=== PATIENT | female | born 1950 ===

== ENCOUNTER → 2021-07-14 10:55 | Outpatient (CLI) | payer MEDICARE, OTHER, SELFPAY ==
[2021-07-14 19:53] LABS: Vitamin D 25 Hydroxy (D3) 52.2 ng/mL (30.0-100.0)
[2021-07-14 20:05] LABS: TSH w/ Reflex to FT4 0.74 uIU/mL (0.47-4.68)
[2021-07-14 20:12] LABS: Vitamin B12 635 pg/mL (239-931)
== END ==
PROVIDERS: PCP Family Medicine; Visit Provider Family Medicine
DX: E55.9 Vitamin D deficiency, unspecified (principal); I10 Essential (primary) hypertension; R42 Dizziness and giddiness
CPT/HCPCS: 82306; 82607; 84443

== ENCOUNTER → 2021-08-17 08:05 | Outpatient (CLI) | payer MEDICARE, OTHER, SELFPAY ==
[2021-08-17 18:59] LABS: Alanine Aminotransferase 21 IU/L (<35); Albumin 4.5 g/dL (3.5-5.0); Albumin Globulin Ratio 1.5 (1.0-2.8); Alkaline Phosphatase 69 U/L (38-126); Aspartate Aminotransferase 25 IU/L (14-36); BUN Creatinine Ratio 22.9 (6-22); Bilirubin Total 0.6 mg/dL (0.2-1.3); Blood Urea Nitrogen 16 mg/dL (7-17); Carbon Dioxide 29 mmol/L (22-32); Chloride 105 mmol/L (98-107); Cholesterol 253 mg/dL (140-199); Estimated Glomerular Filt Rate > 60.0 mL/min (>60); Glucose 98 mg/dL (80-110); HDL Cholesterol 64 mg/dL (40-60); HEMOLYSIS < 15 (0-50); LDL Cholesterol Calculated 168 mg/dL (<100); Potassium 4.2 mmol/L (3.4-5.1); Sodium 143 mmol/L (137-145); Total Protein 7.5 g/dL (6.3-8.2); Triglycerides 106 mg/dL (35-150)
[2021-08-17 19:17] LABS: Add Manual Diff / Slide Review NO; Basophils Absolute Auto 0 /uL (0-100); Basophils Percent Auto 0.7 % (0-2); Eosinophils Absolute Auto 200 /uL (0-450); Eosinophils Percent Auto 3.5 % (2-4); Hematocrit 42.3 % (36-46); Hemoglobin 14.2 g/dL (12.0-16.0); Lymphocytes Absolute Auto 1100 /uL (1100-4500); Lymphocytes Percent Auto 19.8 % (25-40); Mean Corpuscular HGB Conc 33.6 % (30-36); Mean Corpuscular Hemoglobin 30.8 PG (26-34); Mean Corpuscular Volume 91.7 fL (80-100); Monocytes Absolute Auto 400 /uL (0-900); Monocytes Percent Auto 7.2 % (3-14); Neutrophils Absolute Auto 3900 /uL (1500-7000); Neutrophils Percent Auto 68.8 % (50-75); Platelet Count 273 X10^3/uL (150-400); Red Blood Cell Count 4.61 X10^6/uL (4.0-5.2); Red Cell Distribution Width 13.5 % (11.6-14.8); White Blood Cell Count 5.7 X10^3/uL (4.5-11.0)
== END ==
PROVIDERS: PCP Physician Assistant; Visit Provider Physician Assistant
DX: R42 Dizziness and giddiness (principal); I10 Essential (primary) hypertension; E55.9 Vitamin D deficiency, unspecified
CPT/HCPCS: 80053; 80061; 85025

== ENCOUNTER → 2023-09-26 08:59 | Outpatient (CLI) | payer MEDICARE, OTHER, SELFPAY ==
[2023-09-26 19:43] LABS: Alanine Aminotransferase 23 IU/L (<35); Albumin 4.2 g/dL (3.5-5.0); Albumin Globulin Ratio 1.4 (1.0-2.8); Alkaline Phosphatase 58 U/L (38-126); Aspartate Aminotransferase 25 IU/L (14-36); BUN Creatinine Ratio 26.5 (6-22); Bilirubin Total 0.6 mg/dL (0.2-1.3); Blood Urea Nitrogen 18 mg/dL (7-17); Calcium 9.5 mg/dL (8.4-10.2); Carbon Dioxide 27 mmol/L (22-32); Chloride 105 mmol/L (98-107); Cholesterol 247 mg/dL (140-199); Estimated Glomerular Filt Rate > 60 mL/min (>60); Glucose 96 mg/dL (80-110); HDL Cholesterol 68 mg/dL (40-60); HEMOLYSIS < 15 (0-50); LDL Cholesterol Calculated 161 mg/dL (<100); Potassium 4.5 mmol/L (3.4-5.1); Sodium 140 mmol/L (137-145); Total Protein 7.2 g/dL (6.3-8.2); Triglycerides 89 mg/dL (35-150)
== END ==
PROVIDERS: PCP Family Medicine; Visit Provider Family Medicine
DX: Z13.6 Encounter for screening for cardiovascular disorders (principal); Z13.1 Encounter for screening for diabetes mellitus; Z12.39 Encounter for other screening for malignant neoplasm of breast; Z23 Encounter for immunization; Z12.9 Encounter for screening for malignant neoplasm, site unspecified; Z12.11 Encounter for screening for malignant neoplasm of colon
CPT/HCPCS: 80053; 80061

== ENCOUNTER → 2024-01-02 11:14 | Outpatient (CLI) | payer MEDICARE, OTHER, SELFPAY ==
--- NOTE | 2024-01-02 11:16 | DI.MG.S_ITS ---
BILATERAL DIGITAL SCREENING MAMMOGRAM 3D/2D WITH CAD: 01/02/2024 CLINICAL: Routine screening. Family history of breast cancer. No prior exams were available for comparison. There are scattered areas of fibroglandular density in both breasts (category b / 25%-50% glandular tissue). Current study was also evaluated with a Computer Aided Detection (CAD) system. There is a focal asymmetry in the right breast at 12 o'clock middle depth. No other significant masses, calcifications, or other findings are seen in either breast. IMPRESSION: INCOMPLETE: NEEDS ADDITIONAL IMAGING EVALUATION The focal asymmetry in the right breast is indeterminate. Additional views with possible ultrasound are recommended. Based on the Tyrer Cuzick model (a risk assessment model) the patient's lifetime risk is 7.0% and her 10 year risk is 5.2%. According to the ACR, ACS, and NCCN guidelines, an annual breast MRI exam along with mammogram is recommended if the patient's lifetime risk is 20% or greater. This exam was interpreted at Station ID: [id number]. NOTE: For mammograms, a report in lay terms will be sent to the patient. Approximately 15% of breast malignancies will not be visualized mammographically. In the management of a palpable breast mass, a negative mammogram must not discourage biopsy of a clinically suspicious lesion. Electronically Signed By: Kirill cook/lashonda:01/03/2024 11:50:56 letter sent: Additional Imaging Needed ACR BI-RADS Category 0: Incomplete 3340F
== END ==
PROVIDERS: PCP Family Medicine; Referring Provider Family Medicine; Visit Provider Family Medicine
DX: Z12.31 Encounter for screening mammogram for malignant neoplasm of breast (principal); Z80.3 Family history of malignant neoplasm of breast; R92.323 Mammographic fibroglandular density, bilateral breasts
CPT/HCPCS: 77063; 77067

== ENCOUNTER → 2024-03-04 09:29 | Outpatient (CLI) | payer MEDICARE, OTHER, SELFPAY ==
--- NOTE | 2024-03-04 09:30 | DI.MG.S_ITS ---
UNILATERAL RIGHT DIGITAL DIAGNOSTIC MAMMOGRAM 3D/2D WITH ADDITIONAL VIEWS: 03/04/2024 CLINICAL: Additional evaluation requested from prior study. Comparison is made to exam dated: 01/02/2024 mammogram - [facility]. There are scattered areas of fibroglandular density in the right breast (category b / 25%-50% glandular tissue). With focal spot compression, and additional views, the abnormality seen in the right breast at 12 o'clock on screening mammography resolves. This is consistent with overlapping fibroglandular tissue. No significant masses, calcifications, or other findings are seen in the breast. IMPRESSION: INCOMPLETE: NEEDS ADDITIONAL IMAGING EVALUATION Resolution of screening mammography abnormality with additional views. Ultrasound evaluation to confirm resolution is recommended and was performed immediately following this exam. Based on the Tyrer Cuzick model (a risk assessment model) the patient's lifetime risk is 7.0% and her 10 year risk is 5.2%. According to the ACR, ACS, and NCCN guidelines, an annual breast MRI exam along with mammogram is recommended if the patient's lifetime risk is 20% or greater. This exam was interpreted at Station ID: [id number]. NOTE: For mammograms, a report in lay terms will be sent to the patient. Approximately 15% of breast malignancies will not be visualized mammographically. In the management of a palpable breast mass, a negative mammogram must not discourage biopsy of a clinically suspicious lesion. Electronically Signed By: Michelle josé/:03/04/2024 10:13:00 ACR BI-RADS Category 0: Incomplete 3340F
--- NOTE | 2024-03-04 09:31 | DI.US.S_ITS ---
LIMITED ULTRASOUND OF RIGHT BREAST AND AXILLA: 03/04/2024 CLINICAL: Patient returns today to evaluate a focal asymmetry in the right breast. Comparison is made to exams dated: 03/04/2024 mammogram and 01/02/2024 mammogram - [facility]. Color flow and real-time ultrasound of the right breast 10-12 o'clock, and axilla regions were performed. Grigsby scale images of the real-time examination were reviewed. No sonographic finding to correspond to the patient's resolved screening mammographic abnormality. There is an incidental, peripherally calcified, 3mm oil cyst documented. This correlates with mammography. No significant abnormalities were seen sonographically in the right axilla. IMPRESSION: PROBABLY BENIGN There are no abnormalities seen in the right breast to correspond with the mammography finding at 10 to 12 o'clock in the middle depth which likely represent normal fibroglandular tissue. A follow-up right mammogram and a possible ultrasound in 6 months is recommended to demonstrate stability. Findings and recommendations were conveyed to the patient at time of exam. This exam was interpreted at Station ID: [id number]. Electronically Signed By: Michelle josé/:03/04/2024 11:15:32 letter sent: Followup Recommended Ultrasound BI-RADS: 3 Probably benign
== END ==
PROVIDERS: PCP Family Medicine; Referring Provider Family Medicine; Visit Provider Family Medicine
DX: R92.8 Other abnormal and inconclusive findings on diagnostic imaging of breast (principal); R92.321 Mammographic fibroglandular density, right breast
CPT/HCPCS: 76642; 77065; G0279

== ENCOUNTER → 2024-03-06 09:58 | Outpatient (CLI) | payer MEDICARE, OTHER, SELFPAY ==
--- NOTE | 2024-03-06 10:00 | DI.US.S_ITS ---
PROCEDURE: US PELVIC COMPLETE INDICATIONS: Postmenopausal Bleeding,Retention of urine TECHNIQUE: Real-time scanning was performed of the pelvic organs, with image documentation. Additional endovaginal scanning was necessary due to incomplete visualization of the adnexal and endometrial structures by transabdominal scanning. COMPARISON: None. FINDINGS: Uterus: Uterus measures overall 6.2 x 6.4 x 3.2 cm. Uterus appears to be folded anteriorly upon itself such that the fundus is at the base of the bladder. Endometrial thickening measure 1 mm Ovaries: Right ovary measures 2.6 x 1.2 x 1.0 cm. Left ovary not visualized. Other: No pathologic free abdominal or pelvic fluid. IMPRESSION: Abnormal anterior folding of the uterus. Consider follow-up MRI pelvis and or [employer] consult Approved by: Fred Remy M.D. on 03/06/2024 at 13:32
--- NOTE | 2024-03-06 10:00 | DI.US.S_ITS ---
PROCEDURE: US RENAL COMPLETE INDICATIONS: Postmenopausal Bleeding, Retention of urine TECHNIQUE: Real-time scanning was performed of the kidneys and bladder, with image documentation. COMPARISON: [facility], , US PELVIC COMPLETE, 03/06/2024, 10:18. FINDINGS: Kidneys: Kidneys are normal in size. Right kidney measures 12.2 cm long; left kidney measures 11 cm long. Right renal cortical thickness is 1.1 cm; left renal cortical thickness is 1.2 cm. Renal cortical echotexture is normal. No nephrolithiasis. No suspicious solid mass lesions. Moderate to prominent right-sided hydronephrosis is seen. The proximal ureter measures 3.5 cm AP. Bladder: Pre-void bladder volume is 228 mL. The postvoid bladder volume is not measured. Pre-void images demonstrate no intraluminal masses or stones. On pre-void images, neither of the ureteral jets are noted with color Doppler interrogation. (Of note, ureteral jets may not be detectable in up to 25% of cases due to insufficient differences in specific gravity between ureteral and bladder urine). Miscellaneous: No free pelvic fluid. Note is made that the uterus is completely prolapse after the patient voided. IMPRESSION: Moderate to severe right-sided hydronephrosis and hydroureter. A postvoid bladder volume measurement cannot be obtained, as the patient uterus is completely prolapsed after the patient voided. Dictated by: Kalen Robin M.D. on 03/06/2024 at 11:08 Approved by: Kalen Robin M.D. on 03/06/2024 at 11:12
== END ==
PROVIDERS: PCP Family Medicine; Referring Provider Obstetrics & Gynecology Female Pelvic Medicine and Reconstructive Surgery; Visit Provider Obstetrics & Gynecology Female Pelvic Medicine and Reconstructive Surgery
DX: N13.30 Unspecified hydronephrosis (principal); N95.0 Postmenopausal bleeding; R33.9 Retention of urine, unspecified; N85.9 Noninflammatory disorder of uterus, unspecified
CPT/HCPCS: 76770; 76856

== ENCOUNTER → 2024-04-07 09:42 | Outpatient (CLI) | payer MEDICARE, OTHER, SELFPAY | PROVIDERS: PCP Family Medicine; Visit Provider Family Medicine | DX: Z01.818 Encounter for other preprocedural examination (principal); R39.89 Other symptoms and signs involving the genitourinary system; I10 Essential (primary) hypertension | CPT/HCPCS: 87086 ==

== ENCOUNTER → 2024-04-08 14:03 | Outpatient (CLI) | payer MEDICARE, OTHER, SELFPAY ==
[2024-04-08 20:33] LABS: BUN Creatinine Ratio 26.8 (6-22); Blood Urea Nitrogen 19 mg/dL (7-17); Calcium 10.2 mg/dL (8.4-10.2); Carbon Dioxide 23 mmol/L (22-32); Chloride 108 mmol/L (98-107); Estimated Glomerular Filt Rate > 60 mL/min (>60); Glucose 97 mg/dL (80-110); HEMOLYSIS < 15 (0-50); Sodium 138 mmol/L (137-145)
[2024-04-08 20:45] LABS: Add Manual Diff / Slide Review NO; Basophils Absolute Auto 100 /uL (0-100); Basophils Percent Auto 0.9 % (0-2); Eosinophils Absolute Auto 200 /uL (0-450); Eosinophils Percent Auto 3.1 % (2-4); Hematocrit 41.1 % (36-46); Hemoglobin 13.7 g/dL (12.0-16.0); Lymphocytes Absolute Auto 1400 /uL (1100-4500); Lymphocytes Percent Auto 21.4 % (25-40); Mean Corpuscular HGB Conc 33.3 % (30-36); Mean Corpuscular Hemoglobin 31.3 PG (26-34); Monocytes Absolute Auto 500 /uL (0-900); Monocytes Percent Auto 6.8 % (3-14); Neutrophils Absolute Auto 4500 /uL (1500-7000); Neutrophils Percent Auto 67.8 % (50-75); Platelet Count 284 X10^3/uL (150-400); Red Blood Cell Count 4.37 X10^6/uL (4.0-5.2); Red Cell Distribution Width 13.2 % (11.6-14.8); White Blood Cell Count 6.7 X10^3/uL (4.5-11.0)
== END ==
PROVIDERS: PCP Family Medicine; Referring Provider Family Medicine; Visit Provider Family Medicine
DX: Z01.818 Encounter for other preprocedural examination (principal); I10 Essential (primary) hypertension
CPT/HCPCS: 80048; 85025

== ENCOUNTER → 2024-05-13 08:26 | Outpatient (CLI) | payer MEDICARE, OTHER, SELFPAY | PROVIDERS: PCP Family Medicine; Visit Provider Physician Assistant Medical | DX: R30.0 Dysuria (principal) | CPT/HCPCS: 87086 ==

== ENCOUNTER 2024-05-13 14:41 | Observation (INO) | payer MEDICARE, OTHER, SELFPAY ==
[2024-05-13] VITALS (22 sets, daily range): BP systolic 117–170; BP diastolic 53–72; PULSE 61–95; RESP 18–22; TEMP 36.2–36.8; O2SAT 92–99; BMI 31.1
[2024-05-13 15:34] LABS: Add Manual Diff / Slide Review NO; Basophils Absolute Auto 0 /uL (0-100); Basophils Percent Auto 0.2 % (0-2); Eosinophils Absolute Auto 0 /uL (0-450); Eosinophils Percent Auto 0.2 % (2-4); Hematocrit 37.1 % (36-46); Hemoglobin 12.5 g/dL (12.0-16.0); Lymphocytes Absolute Auto 600 /uL (1100-4500); Lymphocytes Percent Auto 4.4 % (25-40); Mean Corpuscular HGB Conc 33.6 % (30-36); Mean Corpuscular Hemoglobin 31.2 PG (26-34); Mean Corpuscular Volume 92.6 fL (80-100); Monocytes Absolute Auto 1200 /uL (0-900); Neutrophils Absolute Auto 11800 /uL (1500-7000); Neutrophils Percent Auto 86.2 % (50-75); Platelet Count 380 X10^3/uL (150-400); Red Blood Cell Count 4.01 X10^6/uL (4.0-5.2); Red Cell Distribution Width 12.9 % (11.6-14.8); White Blood Cell Count 13.7 X10^3/uL (4.5-11.0)
[2024-05-13] MEDS: HYDROMORPHONE 0.5 MG INJ IV (15:45)
[2024-05-13] MEDS: LIDOCAINE 2% (GLYDO) 6 ML GEL TOP (15:45)
[2024-05-13] MEDS: ONDANSETRON 4 MG/2 ML INJ IV (15:45)
[2024-05-13 15:46] LABS: Lactate (Lactic Acid) 0.9 mmol/L (0.7-2.1)
[2024-05-13] MEDS: SODIUM CHLORIDE 0.9% 1,000 ML 1000 ML IV (15:46)
[2024-05-13 15:47] LABS: Alanine Aminotransferase 14 IU/L (<35); Albumin 3.9 g/dL (3.5-5.0); Albumin Globulin Ratio 1.3 (1.0-2.8); Alkaline Phosphatase 86 U/L (38-126); Aspartate Aminotransferase 20 IU/L (14-36); Bilirubin Total 0.8 mg/dL (0.2-1.3); Blood Urea Nitrogen 41 mg/dL (7-17); Calcium 9.1 mg/dL (8.4-10.2); Carbon Dioxide 15 mmol/L (22-32); Chloride 99 mmol/L (98-107); Estimated Glomerular Filt Rate 30 mL/min (>60); Globulin 3.1 g/dL (1.7-4.1); Glucose 106 mg/dL (80-110); HEMOLYSIS < 15 (0-50); Sodium 126 mmol/L (137-145)
[2024-05-13 16:13] LABS: Appearance Urine UA CLEAR; Bilirubin Urine UA NEGATIVE (NEGATIVE); Color Urine UA YELLOW; Glucose Urine UA NEGATIVE (Negative); Ketones Urine UA 1+ (NEGATIVE); Leukocyte Esterase Urine UA TRACE (NEGATIVE); Nitrite Urine UA NEGATIVE (Negative); Occult Blood Urine UA TRACE-INTACT (Negative); Protein Urine UA NEGATIVE (Negative); Specific Gravity Urine UA <=1.005 (1.000-1.035); Urobilinogen Urine UA 0.2 E.U./dL (0.2)
--- NOTE | 2024-05-13 16:15 | ED_ITS ---
HPI - General Adult <Charmaine Hughes MD - Last Filed: 06/04/24 03:53> General Chief complaint: Abdominal Pain Stated complaint: infection, post op problems, sent by pcp Time Seen by Provider: 05/13/24 14:50 Source: patient and family Mode of arrival: Wheelchair History of Present Illness HPI narrative: 74-year-old woman with recent uterine descensus repair with colpocleisis and cystoscopy for a bladder tumor on May 05 at [facility] comes in complaining of severe abdominal pain. She has been having increasing difficulty voiding over the last 48 hours. Increasing weakness. Her surgeon asked her to come in for further evaluation. She has not describing fever. She is having some minor postoperative vaginal discharge but does not feel that it is worsening. She has had some nausea has not been able to eat well for the past number of days. Occasional vomiting. She states she had a normal bowel movement this morning that did not cause severe pain. Related Data Home Medications Medication Instructions Recorded Confirmed No Known Home Medications 09/13/23 05/13/24 Allergies Allergy/AdvReac Type Severity Reaction Status Date / Time procaine [From Novocain] AdvReac Intermediate Verified 05/13/24 15:38 Review of Systems <Charmaine Hughes MD - Last Filed: 06/04/24 03:53> Review of Systems Narrative: Pertinent positive and negative findings as per HPI Patient History <Charmaine Hughes MD - Last Filed: 06/04/24 03:53> Medical History Uterine prolapse Social History household members: children Smoking Status: Former smoker alcohol intake: former additional social history: exercise: 5,000 steps per day. 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 FHX: no colon cancer half sister with breast cancer 08/2023 Smoking Status: Former smoker Substance Use Type: does not use Exam <Charmaine Hughes MD - Last Filed: 06/04/24 03:53> Initial Vital Signs Initial Vital Signs: Vital Signs Pulse Rate 87 05/13/24 14:49 Pulse Oximetry 99 05/13/24 14:49 General: Healthy appearing, fatigued, pale, complaining of abdominal pain but able to cooperate completely with exam and history HEENT: Dry mucous membranes, normal sclera with reactive pupils, Respiratory: Lungs are clear to auscultation, no wheezing no rales no rhonchi. Full and symmetrical air movement Cardiac: Regular rate and rhythm no murmurs no bruits Abdomen: Slightly distended, diffusely tender with rebound noted. Bilateral flank pain. Perineum: Some minor postoperative vaginal discharge no significant erythema or obvious infection Skin: Pale but otherwise Warm and dry, no rashes Neurologic: Weak but Grossly neurologically intact with no obvious asymmetries or abnormalities Extremities: No trauma, no lower extremity edema Psych: Cooperative, appropriate insight and affect <Mckay Shah DO - Last Filed: 05/13/24 20:25> Initial Vital Signs Initial Vital Signs: Vital Signs Pulse Rate 87 05/13/24 14:49 Pulse Oximetry 99 05/13/24 14:49 Course <Charmaine Hughes MD - Last Filed: 06/04/24 03:53> Orders Ordered: Discontinued Medications Acetaminophen (Acetaminophen 325 Mg Tablet) 650 mg PO Q6H PRN PRN Reason: Fever/Mild Pain (1-3) Hydrocodone Bitart/Acetaminophen (Hydrocodone/Acet 5/325 Tablet) 1 tab PO Q4H PRN PRN Reason: Pain, Moderate (4-6) Hydromorphone HCl (Hydromorphone 0.5 Mg Inj) 0.5 mg IV Q15MIN PRN PRN Reason: Pain, Last Admin: 05/13/24 15:45 Dose: 0.5 mg Documented By: SELIN Sodium Chloride (Normal Saline 0.9%) 1,000 mls @ 1,000 mls/hr IV BOLUS ONE Stop: 05/13/24 16:15 Last Infusion: 05/13/24 17:24 Dose: Infused Documented By: Admin: 05/13/24 15:46 Dose: 1,000 mls/hr Documented By: SELIN Ceftriaxone Sodium 2,000 mg/ (Sodium Chloride) 100 mls @ 200 mls/hr IV NOW ONE Stop: 05/13/24 16:19 Last Infusion: 05/13/24 17:24 Dose: Infused Documented By: Admin: 05/13/24 16:44 Dose: 200 mls/hr Documented By: OFELIA Sodium Chloride (Normal Saline 0.9%) 1,000 mls @ 100 mls/hr IV CONT CHANELLE Last Admin: 05/14/24 07:43 Dose: 100 mls/hr Documented By: Infusion: 05/14/24 07:34 Dose: Infused Documented By: Admin: 05/13/24 21:34 Dose: 100 mls/hr Documented By: ANUSHA Lidocaine HCl (Lidocaine 2% (Glydo) 6 Ml Gel) 6 ml TOP NOW ONE Stop: 05/13/24 15:17 Last Admin: 05/13/24 15:45 Dose: 6 ml Documented By: SELIN Naloxone HCl (Naloxone 0.4 Mg/Ml Vial) 0.2 mg IV Q2MIN PRN PRN Reason: Opiate Reversal Ondansetron HCl (Ondansetron 4 Mg/2 Ml Inj) 4 mg IV NOW ONE Stop: 05/13/24 15:17 Last Admin: 05/13/24 15:45 Dose: 4 mg Documented By: SELIN Ondansetron HCl (Ondansetron 4 Mg/2 Ml Inj) 4 mg IV Q8HR PRN PRN Reason: Nausea And Vomiting Vital Signs Vital signs: Vital Signs - 8 hr 05/13/24 14:49 05/13/24 14:50 05/13/24 14:50 Temperature Pulse Rate 87 87 Respiratory Rate Blood Pressure 170/72 H Pulse Oximetry 99 98 Oxygen Delivery Method 05/13/24 14:58 05/13/24 15:00 05/13/24 15:00 Temperature 98.3 F Pulse Rate 86 78 Respiratory Rate 22 Blood Pressure 170/72 H 154/70 H Pulse Oximetry 98 97 Oxygen Delivery Method Room Air 05/13/24 15:30 05/13/24 15:44 05/13/24 15:44 Temperature Pulse Rate 68 72 Respiratory Rate Blood Pressure 151/69 H Pulse Oximetry 97 96 Oxygen Delivery Method 05/13/24 16:00 05/13/24 16:00 05/13/24 16:35 Temperature Pulse Rate 70 72 Respiratory Rate Blood Pressure 162/70 H Pulse Oximetry 98 97 Oxygen Delivery Method 05/13/24 16:48 05/13/24 16:48 05/13/24 17:00 Temperature Pulse Rate 61 Respiratory Rate Blood Pressure 133/63 142/65 H Pulse Oximetry 98 Oxygen Delivery Method 05/13/24 17:00 08/28/24 17:30 05/13/24 17:30 Temperature Pulse Rate 77 76 Respiratory Rate Blood Pressure 147/65 H Pulse Oximetry 97 95 Oxygen Delivery Method Room Air 05/13/24 18:00 05/13/24 18:00 05/13/24 18:30 Temperature Pulse Rate 84 86 Respiratory Rate Blood Pressure 123/60 Pulse Oximetry 95 97 Oxygen Delivery Method 05/13/24 18:31 05/13/24 18:31 05/13/24 18:52 Temperature Pulse Rate 84 83 Respiratory Rate Blood Pressure 156/65 H Pulse Oximetry 97 97 Oxygen Delivery Method Room Air 05/13/24 18:52 05/13/24 19:00 05/13/24 19:00 Temperature Pulse Rate 78 Respiratory Rate Blood Pressure 140/61 139/61 Pulse Oximetry 97 Oxygen Delivery Method 05/13/24 19:30 05/13/24 19:30 Temperature Pulse Rate 82 Respiratory Rate Blood Pressure 128/58 L Pulse Oximetry 95 Oxygen Delivery Method Room Air <Mckay Shah DO - Last Filed: 05/13/24 20:25> Orders Ordered: Discontinued Medications Acetaminophen (Acetaminophen 325 Mg Tablet) 650 mg PO Q6H PRN PRN Reason: Fever/Mild Pain (1-3) Hydrocodone Bitart/Acetaminophen (Hydrocodone/Acet 5/325 Tablet) 1 tab PO Q4H PRN PRN Reason: Pain, Moderate (4-6) Hydromorphone HCl (Hydromorphone 0.5 Mg Inj) 0.5 mg IV Q15MIN PRN PRN Reason: Pain, Last Admin: 05/13/24 15:45 Dose: 0.5 mg Documented By: SELIN Sodium Chloride (Normal Saline 0.9%) 1,000 mls @ 1,000 mls/hr IV BOLUS ONE Stop: 05/13/24 16:15 Last Infusion: 05/13/24 17:24 Dose: Infused Documented By: Admin: 05/13/24 15:46 Dose: 1,000 mls/hr Documented By: SELIN Ceftriaxone Sodium 2,000 mg/ (Sodium Chloride) 100 mls @ 200 mls/hr IV NOW ONE Stop: 05/13/24 16:19 Last Infusion: 05/13/24 17:24 Dose: Infused Documented By: Admin: 05/13/24 16:44 Dose: 200 mls/hr Documented By: OFELIA Sodium Chloride (Normal Saline 0.9%) 1,000 mls @ 100 mls/hr IV CONT CHANELLE Last Admin: 05/14/24 07:43 Dose: 100 mls/hr Documented By: Infusion: 05/14/24 07:34 Dose: Infused Documented By: Admin: 05/13/24 21:34 Dose: 100 mls/hr Documented By: ANUSHA Lidocaine HCl (Lidocaine 2% (Glydo) 6 Ml Gel) 6 ml TOP NOW ONE Stop: 05/13/24 15:17 Last Admin: 05/13/24 15:45 Dose: 6 ml Documented By: SELIN Naloxone HCl (Naloxone 0.4 Mg/Ml Vial) 0.2 mg IV Q2MIN PRN PRN Reason: Opiate Reversal Ondansetron HCl (Ondansetron 4 Mg/2 Ml Inj) 4 mg IV NOW ONE Stop: 05/13/24 15:17 Last Admin: 05/13/24 15:45 Dose: 4 mg Documented By: SELIN Ondansetron HCl (Ondansetron 4 Mg/2 Ml Inj) 4 mg IV Q8HR PRN PRN Reason: Nausea And Vomiting Vital Signs Vital signs: Vital Signs - 8 hr 05/13/24 14:49 05/13/24 14:50 05/13/24 14:50 Temperature Pulse Rate 87 87 Respiratory Rate Blood Pressure 170/72 H Pulse Oximetry 99 98 Oxygen Delivery Method 05/13/24 14:58 05/13/24 15:00 05/13/24 15:00 Temperature 98.3 F Pulse Rate 86 78 Respiratory Rate 22 Blood Pressure 170/72 H 154/70 H Pulse Oximetry 98 97 Oxygen Delivery Method Room Air 05/13/24 15:30 05/13/24 15:44 05/13/24 15:44 Temperature Pulse Rate 68 72 Respiratory Rate Blood Pressure 151/69 H Pulse Oximetry 97 96 Oxygen Delivery Method 05/13/24 16:00 05/13/24 16:00 05/13/24 16:35 Temperature Pulse Rate 70 72 Respiratory Rate Blood Pressure 162/70 H Pulse Oximetry 98 97 Oxygen Delivery Method 05/13/24 16:48 05/13/24 16:48 05/13/24 17:00 Temperature Pulse Rate 61 Respiratory Rate Blood Pressure 133/63 142/65 H Pulse Oximetry 98 Oxygen Delivery Method 05/13/24 17:00 05/13/24 17:30 05/13/24 17:30 Temperature Pulse Rate 77 76 Respiratory Rate Blood Pressure 147/65 H Pulse Oximetry 97 95 Oxygen Delivery Method Room Air 05/13/24 18:00 05/13/24 18:00 05/13/24 18:30 Temperature Pulse Rate 84 86 Respiratory Rate Blood Pressure 123/60 Pulse Oximetry 95 97 Oxygen Delivery Method 05/13/24 18:31 05/13/24 18:31 05/13/24 18:52 Temperature Pulse Rate 84 83 Respiratory Rate Blood Pressure 156/65 H Pulse Oximetry 97 97 Oxygen Delivery Method Room Air 05/13/24 18:52 05/13/24 19:00 05/13/24 19:00 Temperature Pulse Rate 78 Respiratory Rate Blood Pressure 140/61 139/61 Pulse Oximetry 97 Oxygen Delivery Method 05/13/24 19:30 05/13/24 19:30 Temperature Pulse Rate 82 Respiratory Rate Blood Pressure 128/58 L Pulse Oximetry 95 Oxygen Delivery Method Room Air Medical Decision Making <Charmaine Hughes MD - Last Filed: 06/04/24 03:53> Lab Data 05/14/24 04:02 05/14/24 04:02 Labs: Lab Results 05/13/24 05/13/24 Range/Units 15:25 16:07 WBC 13.7 H (4.5-11.0) X10^3/uL RBC 4.01 (4.0-5.2) X10^6/uL Hgb 12.5 (12.0-16.0) g/dL Hct 37.1 (36-46) % MCV 92.6 (80-100) fL MCH 31.2 (26-34) PG MCHC 33.6 (30-36) % RDW 12.9 (11.6-14.8) % Plt Count 380 (150-400) X10^3/uL Neut % (Auto) 86.2 H (50-75) % Lymph % (Auto) 4.4 L (25-40) % Mckinley % (Auto) 9.0 (3-14) % Eos % (Auto) 0.2 L (2-4) % Baso % (Auto) 0.2 (0-2) % Neut # (Auto) 70806 H (5585-1126) /uL Lymph # (Auto) 600 L (7012-0636) /uL Mckinley # (Auto) 1200 H (0-900) /uL Eos # (Auto) 0 (0-450) /uL Baso # (Auto) 0 (0-100) /uL Sodium 126 L (137-145) mmol/L Potassium 5.0 (3.4-5.1) mmol/L Chloride 99 (98-107) mmol/L Carbon Dioxide 15 L (22-32) mmol/L BUN 41 H (7-17) mg/dL Creatinine 1.78 H (0.52-1.04) mg/dL Estimated GFR 30 L (>60) mL/min BUN/Creatinine Ratio 23.0 H (6-22) Glucose 106 (80-110) mg/dL Lactate 0.9 (0.7-2.1) mmol/L Calcium 9.1 (8.4-10.2) mg/dL Total Bilirubin 0.8 (0.2-1.3) mg/dL AST 20 (14-36) IU/L ALT 14 (<35) IU/L Alkaline Phosphatase 86 (38-126) U/L Total Protein 7.0 (6.3-8.2) g/dL Albumin 3.9 (3.5-5.0) g/dL Globulin 3.1 (1.7-4.1) g/dL Albumin/Globulin Ratio 1.3 (1.0-2.8) Urine Color Yellow Urine Appearance Clear Urine pH 5.5 (4.5-8.0) Ur Specific [place] <=1.005 (1.000-1.035) Urine Protein Negative (Negative) Urine Glucose (UA) Negative (Negative) g/dL Urine Ketones 1+ H (NEGATIVE) Urine Occult Blood Trace-intact (Negative) Urine Nitrate Negative (Negative) Urine Bilirubin Negative (NEGATIVE) Urine Urobilinogen 0.2 (0.2) E.U./dL Ur Leukocyte Esterase Trace H (NEGATIVE) Urine RBC 1-5/hpf (0-5/HPF) Urine WBC 0-1/hpf (0-5/HPF) Ur Squamous Epith Cells 0-1 /hpf (0-5/HPF) Urine Bacteria Occasional (0-1) (None) Ur Culture Indicated? 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 Coronal and sagittal reformats were performed. For radiation dose reduction, the following was used: automated exposure control, adjustment of mA and/or kV according to patient size. COMPARISON: [facility], , RENAL COMPLETE, 03/06/2024, 10:26. FINDINGS: Image quality: Diagnostic. Lower Chest: Dependent atelectasis in posterior aspect of bilateral lung bases are seen. Heart size is normal, no pericardial effusion. URINARY: Right Kidney: Moderate to severe right-sided hydronephrosis is seen. No obstructing renal stone is seen. Right Ureter: There is moderate to severe right-sided hydroureter extending to the level of S1. Most distal right ureter is not well visualized. Left Kidney: No stones or hydronephrosis. Left Ureter: No hydroureter. Bladder: Lewis catheter is seen in a decompressed urinary bladder. Questionable diffuse bladder wall thickening and edema is noted. ABDOMEN: Liver: No contour-deforming solid mass. Gallbladder: Gallbladder is distended. No radiopaque gallstones or wall thickening. Biliary ducts: No biliary dilation. Pancreas: No ductal dilation. Spleen: Size is within normal limits. Adrenal Glands: No adrenal nodules. Stomach and Bowel: Small to moderate size hiatal hernia is seen. There is no bowel obstruction. No gross gastric or small bowel wall thickening. No colonic wall thickening. Sigmoid diverticulosis is seen without CT evidence of acute diverticulitis.. Peritoneum: Small to moderate amount of ascites fluid is seen in abdomen and pelvis adjacent to liver and spleen and in lower pelvis. No gross peritoneal free air. Ventral Wall: No hernia. Abdominal Nodes: No enlarged retroperitoneal or mesenteric lymph nodes. Vessels: Aorta and inferior vena cava are normal in size. PELVIS: Pelvic Organs: Uterus is within normal limits. Bilateral ovaries are not well seen on this study. Suggestion of a small right ovarian cyst measures 9 mm in size is noted. Pelvic Nodes: Unremarkable. Miscellaneous: No inguinal hernias are seen. Moderate amount of pelvic free fluid is seen. Bones: No aggressive appearing bony lesions. Grade 1 anterolisthesis of L4 on L5 is seen. IMPRESSION: 1. Marked right-sided hydronephrosis and hydroureter without obstructing stone seen. Most distal right ureter is not well seen. No abnormal calcification is seen in the region of UVJ. Finding could represent compression of right distal ureter secondary from pelvic hematoma/seroma. No left-sided hydronephrosis or hydroureter. 2. Lewis catheter in a decompressed urinary bladder. Diffuse bladder wall thickening, no definite bladder wall mass. 3. Moderate amount of free fluid in the pelvis which may represent postsurgical seroma versus organizing peritoneal hematoma given patient's history of recent surgery. No gross free air. 4. Suggestion of tiny subcentimeter right ovarian cyst. Normal appearing uterus. 5. Distended gallbladder. No calcified gallstones or gallbladder wall thickening. No gross biliary ductal dilatation. 6. Small to moderate size hiatal hernia. No bowel obstruction or abnormal bowel wall thickening. No free fluid or free air. Sigmoid diverticulosis without CT evidence of acute diverticulitis. Dictated by: Garrison White M.D. on 05/13/2024 at 17:16 MDM Narrative Medical decision making narrative: CC: Postop uterus suspension and cystoscopy on the with increasing abdominal pain Complicating co-morbidities: Surgery done at Dr. Rell Christianson [phone] Data collected from: patient Social determinants of health that may influence the patients condition: Patient lives on [facility] Differential considered: Postop pain, swelling causing acute urinary retention, pelvic abscess Exam documented above, pertinent findings include: Patient is significantly uncomfortable with peritoneal signs on abdominal exam. After Lewis catheter is placed, bladder is drained peritoneal signs remain Lab Test results independently reviewed as above. Pertinent findings: CBC shows a white count of 13.7 with 86% neutrophils. No anemia normal platelets Chemistries show new hyponatremia at 126. New acute kidney injury with creatinine bumped from 0.7-1.78. GFR is below 30. Liver function is unremarkable Lactic acid is not elevated Urine has few white cells does not look infected Imaging studies independently reviewed: Consultations: [address] Black (cell [phone]) reviewed findings with her. The journeyman patternmaker surgery was fairly benign did not get into the abdominal cavity. Was in concert with Urology that did cystoscopy to biopsy of bladder tumor. There were ureteral flow jets appreciated bilaterally after procedure was done. Would appreciate call via cell phone after CT scan returns to facilitate disposition plan and help decide whether the patient needs to be transferred or medically treated Dr Mcdonough, urology, in the department to evaluate the patient. Talking with Dr Zacarias Treatments: Normal saline, Dilaudid, Lewis catheter placement. Ceftriaxone is started with concerns for intra-abdominal infection. Re-evaluations: Discussion: <Mckay Shah, - Last Filed: 05/13/24 20:25> Lab Data Lab results reviewed: Yes I reviewed the patient's lab results. Labs: Lab Results 05/13/24 05/13/24 Range/Units 15:25 16:07 WBC 13.7 H (4.5-11.0) X10^3/uL RBC 4.01 (4.0-5.2) X10^6/uL Hgb 12.5 (12.0-16.0) g/dL Hct 37.1 (36-46) % MCV 92.6 (80-100) fL MCH 31.2 (26-34) PG MCHC 33.6 (30-36) % RDW 12.9 (11.6-14.8) % Plt Count 380 (150-400) X10^3/uL Neut % (Auto) 86.2 H (50-75) % Lymph % (Auto) 4.4 L (25-40) % M[place] % (Auto) 9.0 (3-14) % Eos % (Auto) 0.2 L (2-4) % Baso % (Auto) 0.2 (0-2) % Neut # (Auto) 41732 H (5871-3634) /uL Lymph # (Auto) 600 L (2208-4649) /uL [place] # (Auto) 1200 H (0-900) /uL Eos # (Auto) 0 (0-450) /uL Baso # (Auto) 0 (0-100) /uL Sodium 126 L (137-145) mmol/L Potassium 5.0 (3.4-5.1) mmol/L Chloride 99 (98-107) mmol/L Carbon Dioxide 15 L (22-32) mmol/L BUN 41 H (7-17) mg/dL Creatinine 1.78 H (0.52-1.04) mg/dL Estimated GFR 30 L (>60) mL/min BUN/Creatinine Ratio 23.0 H (6-22) Glucose 106 (80-110) mg/dL Lactate 0.9 (0.7-2.1) mmol/L Calcium 9.1 (8.4-10.2) mg/dL Total Bilirubin 0.8 (0.2-1.3) mg/dL AST 20 (14-36) IU/L ALT 14 (<35) IU/L Alkaline Phosphatase 86 (38-126) U/L Total Protein 7.0 (6.3-8.2) g/dL Albumin 3.9 (3.5-5.0) g/dL Globulin 3.1 (1.7-4.1) g/dL Albumin/Globulin Ratio 1.3 (1.0-2.8) Urine Color Yellow Urine Appearance Clear Urine pH 5.5 (4.5-8.0) Ur Specific [place] <=1.005 (1.000-1.035) Urine Protein Negative (Negative) Urine Glucose (UA) Negative (Negative) g/dL Urine Ketones 1+ H (NEGATIVE) Urine Occult Blood Trace-intact (Negative) Urine Nitrate Negative (Negative) Urine Bilirubin Negative (NEGATIVE) Urine Urobilinogen 0.2 (0.2) E.U./dL Ur Leukocyte Esterase Trace H (NEGATIVE) Urine RBC 1-5/hpf (0-5/HPF) Urine WBC 0-1/hpf (0-5/HPF) Ur Squamous Epith Cells 0-1 /hpf (0-5/HPF) Urine Bacteria Occasional (0-1) (None) Ur Culture Indicated? Cult not indicated Vol Urine Centrifuged 10ml (spun) Imaging Data CT cystogram: Radiologist's Impression: PROCEDURE: CT CYSTOGRAM INDICATIONS: urologic surgery complication TECHNIQUE: Both before and after gravity instillation of 10% Isovue contrast solution into the bladder through a Lewis catheter, 5 mm axial images acquired from the bladder dome to the symphysis. 5 mm thick coronal and sagittal reformats were acquired. For radiation dose reduction, the following was used: automated exposure control, adjustment of mA and/or kV according to patient size. COMPARISON: [facility], CT, CT ABDOMEN PELVIS WO CON, 05/13/2024, 16:31. FINDINGS: Image quality: Diagnostic. Bladder: There is a full-thickness defect involving right lateral wall of urinary bladder measures up to 7 mm in with and contrast extravasating into right retroperitoneal space of lower pelvis. Lewis catheter balloon is noted within urinary bladder lumen. Small left lateral bladder wall diverticulum is seen. Distal Ureters: There is limited evaluation of bilateral distal ureter due to lack of IV contrast opacification. No gross hydronephrosis is noted on the left side. Earlier noted right-sided hydronephrosis and hydroureter is not significantly changed extending to the area of right retroperitoneal fluid collection and contrast. PELVIS: Peritoneum and Bowel: Bowel loops demonstrate normal wall thickness and caliber. Right lower pelvic free fluid likely retroperitoneal and is canoe fr[place] ating with extravasated contrast. Pelvic Organs: No pelvic mass. Pelvic Nodes: No enlarged lymph nodes. Miscellaneous: Small right inguinal hernia containing fat only. Bones: No aggressive osseous abnormality. IMPRESSION: 1. Right lateral urinary bladder wall perforation with contrast extravasation into right retroperitoneal space. 2. Persistent moderate right-sided hydronephrosis and hydroureter extending to the level of the extravasated contrast and fluid. MDM Narrative Medical decision making narrative: CC: Postop uterus suspension and cystoscopy on the with increasing abdominal pain Complicating co-morbidities: Surgery done at Dr. Rell Christianson [phone] Data collected from: patient Social determinants of health that may influence the patients condition: Patient lives on [facility] Differential considered: Postop pain, swelling causing acute urinary retention, pelvic abscess Exam documented above, pertinent findings include: Patient is significantly uncomfortable with peritoneal signs on abdominal exam. After Lewis catheter is placed, bladder is drained peritoneal signs remain Lab Test results independently reviewed as above. Pertinent findings: CBC shows a white count of 13.7 with 86% neutrophils. No anemia normal platelets Chemistries show new hyponatremia at 126. New acute kidney injury with creatinine bumped from 0.7-1.78. GFR is below 30. Liver function is unremarkable Lactic acid is not elevated Urine has few white cells does not look infected Imaging studies independently reviewed: Consultations: [address] Black (cell [phone]) reviewed findings with her. The journeyman patternmaker surgery was fairly benign did not get into the abdominal cavity. Was in concert with Urology that did cystoscopy to biopsy of bladder tumor. There were ureteral flow jets appreciated bilaterally after procedure was done. Would appreciate call via cell phone after CT scan returns to facilitate disposition plan and help decide whether the patient needs to be transferred or medically treated Dr Mcdonough, urology, in the department to evaluate the patient. Talking with Dr Zacarias Treatments: Normal saline, Dilaudid, Lewis catheter placement. Ceftriaxone is started with concerns for intra-abdominal infection. Re-evaluations: Discussion: Dr shah: Received turned over. Reviewed patient's history and physical exam. Patient has been evaluated by Urology. Had a CT cystogram. It does appear that the patient has a ruptured bladder but it appears to be retroperitoneal. Urology recommended Lewis catheter which has already been placed. They recommend admission to the hospital overnight. They be happy to follow along and see the patient again tomorrow. There was no indication for emergent surgery to include urologic or gynecologic. Local urologist has talked with the patient's operative transportation dispatch manager at the outside facility. Both are in agreement that admission and Lewis catheter for observation is warranted. Discussed the case with Dr. Dean hospitalist on-call who will admit for further evaluation and treatment. The patient is aware of the need for admission and expressed understanding and agreement. Discharge Plan Departure Patient Disposition: Admitted as Observation Clinical Impression: Bladder rupture Admit Date/Time: 05/13/24 20:13 Admit Provider: Kishore Sellers
--- NOTE | 2024-05-13 16:18 | DI.CT.S_ITS ---
PROCEDURE: CT ABDOMEN PELVIS WO CON INDICATIONS: abdominal pain 8 days post [employer] surgery TECHNIQUE: Axial sections were acquired from the lung bases to the pubic symphysis. Coronal and sagittal reformats were performed. For radiation dose reduction, the following was used: automated exposure control, adjustment of mA and/or kV according to patient size. COMPARISON: [facility], , US RENAL COMPLETE, 03/06/2024, 10:26. FINDINGS: Image quality: Diagnostic. Lower Chest: Dependent atelectasis in posterior aspect of bilateral lung bases are seen. Heart size is normal, no pericardial effusion. URINARY: Right Kidney: Moderate to severe right-sided hydronephrosis is seen. No obstructing renal stone is seen. Right Ureter: There is moderate to severe right-sided hydroureter extending to the level of S1. Most distal right ureter is not well visualized. Left Kidney: No stones or hydronephrosis. Left Ureter: No hydroureter. Bladder: Lewis catheter is seen in a decompressed urinary bladder. Questionable diffuse bladder wall thickening and edema is noted. ABDOMEN: Liver: No contour-deforming solid mass. Gallbladder: Gallbladder is distended. No radiopaque gallstones or wall thickening. Biliary ducts: No biliary dilation. Pancreas: No ductal dilation. Spleen: Size is within normal limits. Adrenal Glands: No adrenal nodules. Stomach and Bowel: Small to moderate size hiatal hernia is seen. There is no bowel obstruction. No gross gastric or small bowel wall thickening. No colonic wall thickening. Sigmoid diverticulosis is seen without CT evidence of acute diverticulitis.. Peritoneum: Small to moderate amount of ascites fluid is seen in abdomen and pelvis adjacent to liver and spleen and in lower pelvis. No gross peritoneal free air. Ventral Wall: No hernia. Abdominal Nodes: No enlarged retroperitoneal or mesenteric lymph nodes. Vessels: Aorta and inferior vena cava are normal in size. PELVIS: Pelvic Organs: Uterus is within normal limits. Bilateral ovaries are not well seen on this study. Suggestion of a small right ovarian cyst measures 9 mm in size is noted. Pelvic Nodes: Unremarkable. Miscellaneous: No inguinal hernias are seen. Moderate amount of pelvic free fluid is seen. Bones: No aggressive appearing bony lesions. Grade 1 anterolisthesis of L4 on L5 is seen. IMPRESSION: 1. Marked right-sided hydronephrosis and hydroureter without obstructing stone seen. Most distal right ureter is not well seen. No abnormal calcification is seen in the region of UVJ. Finding could represent compression of right distal ureter secondary from pelvic hematoma/seroma. No left-sided hydronephrosis or hydroureter. 2. Lewis catheter in a decompressed urinary bladder. Diffuse bladder wall thickening, no definite bladder wall mass. 3. Moderate amount of free fluid in the pelvis which may represent postsurgical seroma versus organizing peritoneal hematoma given patient's history of recent surgery. No gross free air. 4. Suggestion of tiny subcentimeter right ovarian cyst. Normal appearing uterus. 5. Distended gallbladder. No calcified gallstones or gallbladder wall thickening. No gross biliary ductal dilatation. 6. Small to moderate size hiatal hernia. No bowel obstruction or abnormal bowel wall thickening. No free fluid or free air. Sigmoid diverticulosis without CT evidence of acute diverticulitis. Dictated by: Garrison White M.D. on 05/13/2024 at 17:16 Approved by: Garrison White M.D. on 05/13/2024 at 17:25
[2024-05-13 16:21] LABS: Bacteria Urine Occasional (0-1); Culture Indicated Urine Cult Not Indicated; RBC Urine 1-5/HPF (0-5/HPF); Squamous Epithelial Cell Urine 0-1 /HPF (0-5/HPF); Urine Volume 10mL (spun); WBC Urine 0-1/HPF (0-5/HPF); pH Urine UA 5.5 (4.5-8.0)
[2024-05-13] MEDS: cefTRIAXone 2,000 MG in SODIUM CHLORIDE 0.9% 100 ML 200 MG IV (16:44)
--- NOTE | 2024-05-13 18:04 | DI.CT.S_ITS ---
PROCEDURE: CT CYSTOGRAM INDICATIONS: urologic surgery complication TECHNIQUE: Both before and after gravity instillation of 10% Isovue contrast solution into the bladder through a Lewis catheter, 5 mm axial images acquired from the bladder dome to the symphysis. 5 mm thick coronal and sagittal reformats were acquired. For radiation dose reduction, the following was used: automated exposure control, adjustment of mA and/or kV according to patient size. COMPARISON: [facility], CT, CT ABDOMEN PELVIS WO CON, 05/13/2024, 16:31. FINDINGS: Image quality: Diagnostic. Bladder: There is a full-thickness defect involving right lateral wall of urinary bladder measures up to 7 mm in with and contrast extravasating into right retroperitoneal space of lower pelvis. Lewis catheter balloon is noted within urinary bladder lumen. Small left lateral bladder wall diverticulum is seen. Distal Ureters: There is limited evaluation of bilateral distal ureter due to lack of IV contrast opacification. No gross hydronephrosis is noted on the left side. Earlier noted right-sided hydronephrosis and hydroureter is not significantly changed extending to the area of right retroperitoneal fluid collection and contrast. PELVIS: Peritoneum and Bowel: Bowel loops demonstrate normal wall thickness and caliber. Right lower pelvic free fluid likely retroperitoneal and is canoe franco ating with extravasated contrast. Pelvic Organs: No pelvic mass. Pelvic Nodes: No enlarged lymph nodes. Miscellaneous: Small right inguinal hernia containing fat only. Bones: No aggressive osseous abnormality. IMPRESSION: 1. Right lateral urinary bladder wall perforation with contrast extravasation into right retroperitoneal space. 2. Persistent moderate right-sided hydronephrosis and hydroureter extending to the level of the extravasated contrast and fluid. Dictated by: Garrison White M.D. on 05/13/2024 at 19:08 Approved by: Garrison White M.D. on 05/13/2024 at 19:15
--- NOTE | 2024-05-13 19:03 | PM.CN ---
History of Present Illness Consult details Chief complaint: infection, post op problems, sent by pcp Requesting provider: Charmaine Royal Ellen Narrative: 74 y/o F w/ h/o uterine and bladder prolapse who is 8 days s/p a uterine and bladder prolapse repair through a vaginal incision as well as a colpecleisis. Her procedure was performed by her Urogynecologist down in [place], [place]. At the conclusion of the procedure, they performed a cystoscopy and noted a few small papillary lesions on her right lateral bladder wall. The on-call Urologist then performed a bladder biopsy of the aforementioned area. She had a conrad catheter placed and was admitted to the hospital for one night. The following morning her catheter was removed and she was able to urinate without difficulty. She does live on [facility] and returned there on the 06 of May. Over the last few days, she noted she had abdominal distension/discomfort as well as difficulty urinating. She would attempt to urinate and only a few drops would come out. She continued to feel like she had a full bladder and was unable to completely empty her bladder. She was in contact with her Urogynecologist over the last few days, and she was finally able to convince her to present to her local physical for evaluation who recommended she present to ED for further evaluation/treatment. Her evaluation was notable for a WBC of 13.7, Hgb 12.5, sCr of 1.78 w/ a BUN of 41 (baseline sCr and BUN were 0.7 and ~20, respectively). A conrad catheter was placed with relative ease and immediate drainage of clear yellow urine. She had a NCCT Abd/Pel performed that noted a moderate amount of free fluid in the pelvis and severe right hydroureteronephrosis (of note, the hydronephrosis was a chronic finding from a RBUS that was performed in February of 2024). Urology was consulted regarding her continued pain/discomfort and elevated sCr. Meds Home Medications and Allergies Home Medications Medication Instructions Recorded Confirmed Type No Known Home Medications 09/13/23 04/07/24 History Allergies Allergy/AdvReac Type Severity Reaction Status Date / Time procaine [From Novocain] AdvReac Intermediate Verified 05/13/24 15:38 Review of Systems Review of Systems Narrative: CONSTITUTIONAL: Denies weight loss, fevers, chills. HEENT: Denies change in vision, hearing. RESP: Denies SOB, cough. CV: Denies palpations, CP. GI: Denies nausea, vomiting, diarrhea. : Endorses difficulty voiding over the last few days. MSK: Denies myalgia, joint pain. SKIN: Denies rash, pruritus. NEURO: Denies headache, syncope. PSYCH: Denies recent change in mood, anxiety, depression. Exam Vital Signs (past 8 hours): - 05/13/24 14:49 05/13/24 14:50 05/13/24 14:50 Temperature Pulse Rate 87 87 Respiratory Rate Blood Pressure 170/72 H Pulse Oximetry 99 98 Oxygen Delivery Method 05/13/24 14:58 05/13/24 15:00 05/13/24 15:00 Temperature 98.3 F Pulse Rate 86 78 Respiratory Rate 22 Blood Pressure 170/72 H 154/70 H Pulse Oximetry 98 97 Oxygen Delivery Method Room Air 05/13/24 15:30 05/13/24 15:44 05/13/24 15:44 Temperature Pulse Rate 68 72 Respiratory Rate Blood Pressure 151/69 H Pulse Oximetry 97 96 Oxygen Delivery Method 05/13/24 16:00 05/13/24 16:00 05/13/24 16:35 Temperature Pulse Rate 70 72 Respiratory Rate Blood Pressure 162/70 H Pulse Oximetry 98 97 Oxygen Delivery Method 05/13/24 16:48 05/13/24 16:48 05/13/24 17:00 Temperature Pulse Rate 61 Respiratory Rate Blood Pressure 133/63 142/65 H Pulse Oximetry 98 Oxygen Delivery Method 05/13/24 17:00 05/13/24 17:30 05/13/24 17:30 Temperature Pulse Rate 77 76 Respiratory Rate Blood Pressure 147/65 H Pulse Oximetry 97 95 Oxygen Delivery Method Room Air 05/13/24 18:00 05/13/24 18:00 05/13/24 18:30 Temperature Pulse Rate 84 86 Respiratory Rate Blood Pressure 123/60 Pulse Oximetry 95 97 Oxygen Delivery Method 05/13/24 18:31 05/13/24 18:31 05/13/24 18:52 Temperature Pulse Rate 84 83 Respiratory Rate Blood Pressure 156/65 H Pulse Oximetry 97 97 Oxygen Delivery Method Room Air 05/13/24 18:52 Temperature Pulse Rate Respiratory Rate Blood Pressure 140/61 Pulse Oximetry Oxygen Delivery Method Oxygen Delivery Method Room Air Narrative Exam Narrative: GEN: Alert and oriented X3. No acute distress. Well-nourished. EYES: PERRLA, EOMI. HENT: Moist mucus membranes, no scleral icterus, normal neck ROM. RESP: Unlabored breathing, equal rise and fall of chest bilaterally, no cyanosis appreciated. CV: No peripheral edema, unremarkable heart rate. ABD: Soft, moderately tender to palpation to suprapubic region, no tenderness to palpation in right upper and left upper abdominal quadrants, no guarding/rebound/rigidity. : Conrad catheter secured and draining clear yellow urine. EXT: No edema, clubbing or cyanosis. SKIN: No rashes or lesions. NEURO: No focal neurologic deficits, CN II-XII grossly intact. PSYCH: Cooperative, appropriate mood and affect. Objective Labs 05/13/24 15:25 05/13/24 15:25 Labs: Laboratory Results - last 24 hr 05/13/24 05/13/24 15:25 16:07 WBC 13.7 H RBC 4.01 Hgb 12.5 Hct 37.1 MCV 92.6 MCH 31.2 MCHC 33.6 RDW 12.9 Plt Count 380 Neut % (Auto) 86.2 H Lymph % (Auto) 4.4 L [place] % (Auto) 9.0 Eos % (Auto) 0.2 L Baso % (Auto) 0.2 Neut # (Auto) 54167 H Lymph # (Auto) 600 L [place] # (Auto) 1200 H Eos # (Auto) 0 Baso # (Auto) 0 Sodium 126 L Potassium 5.0 Chloride 99 Carbon Dioxide 15 L BUN 41 H Creatinine 1.78 H Estimated GFR 30 L BUN/Creatinine Ratio 23.0 H Glucose 106 Lactate 0.9 Calcium 9.1 Total Bilirubin 0.8 AST 20 ALT 14 Alkaline Phosphatase 86 Total Protein 7.0 Albumin 3.9 Globulin 3.1 Albumin/Globulin Ratio 1.3 Urine Color Yellow Urine Appearance Clear Urine pH 5.5 Ur Specific [place] <=1.005 Urine Protein Negative Urine Glucose (UA) Negative Urine Ketones 1+ H Urine Occult Blood Trace-intact Urine Nitrate Negative Urine Bilirubin Negative Urine Urobilinogen 0.2 Ur Leukocyte Esterase Trace H Urine RBC 1-5/hpf Urine WBC 0-1/hpf Ur Squamous Epith Cells 0-1 /hpf Urine Bacteria Occasional (0-1) Ur Culture Indicated? Cult not indicated Vol Urine Centrifuged 10ml (spun) [facility]END[facility] TO [facility] Medical History Uterine prolapse Tobacco & Substance Use Smoking Status: Former smoker Additional Social History additional social history: exercise: 5,000 steps per day. 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 FHX: no colon cancer half sister with breast cancer 08/2023 Assessment & Plan Assessment and plan (1) Perforation of bladder: Status: Acute Plan: 74 y/o F now POD 8 s/p a uterine and bladder prolapse repair coupled with a Colpocleisis procedure and a cystoscopy w/ bladder biopsy who presented to ED for worsening abdominal pain/discomfort and difficulty urinating. Her evaluation was notable for a WBC of 13.7, Hgb 12.5, sCr of 1.78 and BUN of 41 (baseline are 0.7 and ~20, respectively). Her NCCT Abd/Pel was concerning for an extraperitoneal bladder rupture, therefore, a CT cystogram was performed with myself assisting. Review of her imaging is notable for an extraperitoneal bladder rupture. Recommend that conrad catheter stay in place for at least the next two weeks. Recommend admission to IM service for observation overnight and correction of her electrolytes (believe that her sCr and BUN will slowly decrease now that her urinoma is draining and she is no longer reabsorbing her urine). Will have her repeat a cystogram prior to conrad catheter removal. I will see again tomorrow AM, 05/14/24. Time-Based Coding :: [TOTAL MINUTES] spent with patient and on the chart (including review of chart, obtaining history, exam, reviewing outside data, placing orders, documenting exam and treatment plan, and counseling patient) on [DATE]. PROFEE Charge Codes Inpatient or Observation consultation: [id number]
[2024-05-13] MEDS: SODIUM CHLORIDE 0.9% 1,000 ML 100 ML IV (21:34)
--- NOTE | 2024-05-13 22:30 | PC.NURSE ---
Patient admiited to room 222 by [facility], admitting RN. Oriented to her room, denies any pain upon assessment. Encouraged to call for any assistance if she needed to get up OOB. Will conitnue plan of care & monitor.
[2024-05-14 00:56] VITALS: BP 129/43; PULSE 74; RESP 18; TEMP 36.3; O2SAT 96
[2024-05-14 04:00] VITALS: BP 116/47; PULSE 73; RESP 18; TEMP 36.1; O2SAT 96
[2024-05-14 04:52] LABS: Add Manual Diff / Slide Review NO; Basophils Absolute Auto 0 /uL (0-100); Basophils Percent Auto 0.2 % (0-2); Eosinophils Absolute Auto 100 /uL (0-450); Eosinophils Percent Auto 0.8 % (2-4); Hemoglobin 10.6 g/dL (12.0-16.0); Lymphocytes Absolute Auto 900 /uL (1100-4500); Mean Corpuscular HGB Conc 34.2 % (30-36); Mean Corpuscular Volume 93.6 fL (80-100); Monocytes Absolute Auto 900 /uL (0-900); Monocytes Percent Auto 10.8 % (3-14); Neutrophils Absolute Auto 6700 /uL (1500-7000); Neutrophils Percent Auto 78.2 % (50-75); Platelet Count 317 X10^3/uL (150-400); Red Blood Cell Count 3.31 X10^6/uL (4.0-5.2); Red Cell Distribution Width 13.2 % (11.6-14.8); White Blood Cell Count 8.5 X10^3/uL (4.5-11.0)
[2024-05-14 05:10] LABS: BUN Creatinine Ratio 30.8 (6-22); Blood Urea Nitrogen 20 mg/dL (7-17); Carbon Dioxide 19 mmol/L (22-32); Chloride 111 mmol/L (98-107); Estimated Glomerular Filt Rate > 60 mL/min (>60); Glucose 90 mg/dL (80-110); HEMOLYSIS < 15 (0-50); Potassium 4.3 mmol/L (3.4-5.1); Sodium 135 mmol/L (137-145)
--- NOTE | 2024-05-14 06:50 | PM.HP.1 ---
History of Present Illness History of Present Illness Date Patient Seen: 05/13/24 Chief complaint: infection, post op problems, sent by pcp Narrative: 74 y/o with recent urologic procedure, presented to ED with dysuria, MANN, Rt hydronephrosis. Seen by urology in the ED: 74 y/o F w/ h/o uterine and bladder prolapse who is 8 days s/p a uterine and bladder prolapse repair through a vaginal incision as well as a colpecleisis. Her procedure was performed by her Urogynecologist down in [place], [place]. At the conclusion of the procedure, they performed a cystoscopy and noted a few small papillary lesions on her right lateral bladder wall. The on-call Urologist then performed a bladder biopsy of the aforementioned area. She had a conrad catheter placed and was admitted to the hospital for one night. The following morning her catheter was removed and she was able to urinate without difficulty. She does live on [facility] and returned there on the 06 of May. Over the last few days, she noted she had abdominal distension/discomfort as well as difficulty urinating. She would attempt to urinate and only a few drops would come out. She continued to feel like she had a full bladder and was unable to completely empty her bladder. She was in contact with her Urogynecologist over the last few days, and she was finally able to convince her to present to her local physical for evaluation who recommended she present to ED for further evaluation/treatment. Her evaluation was notable for a WBC of 13.7, Hgb 12.5, sCr of 1.78 w/ a BUN of 41 (baseline sCr and BUN were 0.7 and ~20, respectively). A conrad catheter was placed with relative ease and immediate drainage of clear yellow urine. She had a NCCT Abd/Pel performed that noted a moderate amount of free fluid in the pelvis and severe right hydroureteronephrosis (of note, the hydronephrosis was a chronic finding from a RBUS that was performed in February of 2024). Urology was consulted regarding her continued pain/discomfort and elevated sCr. Apart from mild leukocytosis, w/o signs of UTI hence not started abx. Placed in observation. [facility] Medical History Uterine prolapse Social History household members: children Smoking Status: Former smoker alcohol intake: former additional social history: exercise: 5,000 steps per day. 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 FHX: no colon cancer half sister with breast cancer 08/2023 Meds Home Medications and Allergies Home Medications Medication Instructions Recorded Confirmed Type No Known Home Medications 09/13/23 05/13/24 History Allergies Allergy/AdvReac Type Severity Reaction Status Date / Time procaine [From Novocain] AdvReac Intermediate Verified 05/13/24 15:38 Review of Systems Cardiovascular Comments: w/o chest pain or palpitations Respiratory Comments: w/o shortness of breath Gastrointestinal Comments: w/o abdominal complaints Genitourinary Comments: dysuria, abdominal tenderness Exam Vital Signs (past 8 hours): - 05/14/24 00:56 05/14/24 04:00 Temperature 97.4 F L 96.9 F L Pulse Rate 74 73 Respiratory Rate 18 18 Blood Pressure 129/43 L 116/47 L Pulse Oximetry 96 96 Oxygen Flow Rate 0 0 Oxygen Delivery Method Room Air Oxygen Flow Rate 0 Const Other: in no distress HENMT Other: normocephalic Neck Other: supple Resp Other: normal respiratory effort Cardio Other: RRR Skin Other: w/o rashes Neuro Other: w/o deficits Psych Other: lucid, appropriate mood Objective Labs 05/14/24 04:02 05/14/24 04:02 Labs: Laboratory Results - last 24 hr 05/13/24 05/13/24 05/14/24 15:25 16:07 04:02 WBC 13.7 H 8.5 RBC 4.01 3.31 L Hgb 12.5 10.6 L Hct 37.1 31.0 L MCV 92.6 93.6 MCH 31.2 32.0 MCHC 33.6 34.2 RDW 12.9 13.2 Plt Count 380 317 Neut % (Auto) 86.2 H 78.2 H Lymph % (Auto) 4.4 L 10.0 L [place] % (Auto) 9.0 10.8 Eos % (Auto) 0.2 L 0.8 L Baso % (Auto) 0.2 0.2 Neut # (Auto) 26689 H 6700 Lymph # (Auto) 600 L 900 L [place] # (Auto) 1200 H 900 Eos # (Auto) 0 100 Baso # (Auto) 0 0 Sodium 126 L 135 L Potassium 5.0 4.3 Chloride 99 111 H Carbon Dioxide 15 L 19 L BUN 41 H 20 H Creatinine 1.78 H 0.65 Estimated GFR 30 L > 60 BUN/Creatinine Ratio 23.0 H 30.8 H Glucose 106 90 Lactate 0.9 Calcium 9.1 8.0 L Total Bilirubin 0.8 AST 20 ALT 14 Alkaline Phosphatase 86 Total Protein 7.0 Albumin 3.9 Globulin 3.1 Albumin/Globulin Ratio 1.3 Urine Color Yellow Urine Appearance Clear Urine pH 5.5 Ur Specific [place] <=1.005 Urine Protein Negative Urine Glucose (UA) Negative Urine Ketones 1+ H Urine Occult Blood Trace-intact Urine Nitrate Negative Urine Bilirubin Negative Urine Urobilinogen 0.2 Ur Leukocyte Esterase Trace H Urine RBC 1-5/hpf Urine WBC 0-1/hpf Ur Squamous Epith Cells 0-1 /hpf Urine Bacteria Occasional (0-1) Ur Culture Indicated? Cult not indicated Vol Urine Centrifuged 10ml (spun) Assessment & Plan Assessment and plan (1) Bladder rupture: Status: Acute (2) MANN (acute kidney injury): Status: Acute (3) Hydronephrosis, right: Status: Acute Assessment & Plan narrative: Bladder Perforation with Uroma - Conrad in place - urology will see again - likely discharge home to follow up with them MANN - from Rt hydronephrosis - BMP pending - IVFs Rt Hydronephrosis / Hydroureter - from uroma DVT prophylaxis -SCDs Time-Based Coding :: [TOTAL MINUTES] spent with patient and on the chart (including review of chart, obtaining history, exam, reviewing outside data, placing orders, documenting exam and treatment plan, and counseling patient) on [DATE]. Quality VTE Deep Vein Thrombosis/Pulmonary Embolism Present on Admission: No
[2024-05-14] MEDS: SODIUM CHLORIDE 0.9% 1,000 ML 100 ML IV (07:43)
[2024-05-14 08:00] VITALS: BP 120/44; PULSE 61; RESP 16; TEMP 36.2; O2SAT 96
--- NOTE | 2024-05-14 13:05 | P.PN_ITS ---
Subjective Subjective Date Patient Seen: 05/14/24 Time Patient Seen: 10:25 Interval history: 74 y/o F w/ h/o uterine and bladder prolapse who is 9 days s/p a uterine and bladder prolapse repair through a vaginal incision as well as a colpecleisis who was noted to have an extraperitoneal bladder perforation on CT cystogram yesterday evening. The conrad catheter has remained in place overnight and her abdominal pain/discomfort has significantly decreased. Her WBC has decreased to 8.5 and her sCr has decreased to her baseline of 0.65. Exam Vital Signs (past 8 hours): - 05/14/24 07:00 05/14/24 08:00 Temperature 97.1 F L Pulse Rate 61 Respiratory Rate 16 Blood Pressure 120/44 L Pulse Oximetry 96 Oxygen Delivery Method Room Air Oxygen Flow Rate 0 Oxygen Delivery Method Room Air Oxygen Flow Rate 0 Narrative Exam Narrative: GEN: Alert and oriented X3. No acute distress. Well-nourished. EYES: PERRLA, EOMI. HENT: Moist mucus membranes, no scleral icterus, normal neck ROM. RESP: Unlabored breathing, equal rise and fall of chest bilaterally, no cyanosis appreciated. CV: No peripheral edema, unremarkable heart rate. ABD: Soft, non-tender, non-distended, no palpable masses. : Tenderness to palpation of suprapubic area, much improved from yesterday evening. Conrad catheter secured and draining clear yellow urine. EXT: No edema, clubbing or cyanosis. SKIN: No rashes or lesions. NEURO: No focal neurologic deficits, CN II-XII grossly intact. PSYCH: Cooperative, appropriate mood and affect. Objective Labs 05/14/24 04:02 05/14/24 04:02 Labs: Laboratory Results - last 24 hr 05/13/24 05/13/24 05/14/24 15:25 16:07 04:02 WBC 13.7 H 8.5 RBC 4.01 3.31 L Hgb 12.5 10.6 L Hct 37.1 31.0 L MCV 92.6 93.6 MCH 31.2 32.0 MCHC 33.6 34.2 RDW 12.9 13.2 Plt Count 380 317 Neut % (Auto) 86.2 H 78.2 H Lymph % (Auto) 4.4 L 10.0 L [place] % (Auto) 9.0 10.8 Eos % (Auto) 0.2 L 0.8 L Baso % (Auto) 0.2 0.2 Neut # (Auto) 38535 H 6700 Lymph # (Auto) 600 L 900 L [place] # (Auto) 1200 H 900 Eos # (Auto) 0 100 Baso # (Auto) 0 0 Sodium 126 L 135 L Potassium 5.0 4.3 Chloride 99 111 H Carbon Dioxide 15 L 19 L BUN 41 H 20 H Creatinine 1.78 H 0.65 Estimated GFR 30 L > 60 BUN/Creatinine Ratio 23.0 H 30.8 H Glucose 106 90 Lactate 0.9 Calcium 9.1 8.0 L Total Bilirubin 0.8 AST 20 ALT 14 Alkaline Phosphatase 86 Total Protein 7.0 Albumin 3.9 Globulin 3.1 Albumin/Globulin Ratio 1.3 Urine Color Yellow Urine Appearance Clear Urine pH 5.5 Ur Specific [place] <=1.005 Urine Protein Negative Urine Glucose (UA) Negative Urine Ketones 1+ H Urine Occult Blood Trace-intact Urine Nitrate Negative Urine Bilirubin Negative Urine Urobilinogen 0.2 Ur Leukocyte Esterase Trace H Urine RBC 1-5/hpf Urine WBC 0-1/hpf Ur Squamous Epith Cells 0-1 /hpf Urine Bacteria Occasional (0-1) Ur Culture Indicated? Cult not indicated Vol Urine Centrifuged 10ml (spun) [facility] Medical History Uterine prolapse Social History household members: children Smoking Status: Former smoker alcohol intake: former additional social history: exercise: 5,000 steps per day. 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 FHX: no colon cancer half sister with breast cancer 08/2023 Assessment & Plan Assessment and plan (1) Perforation of bladder: Status: Acute Plan: 74 y/o F w/ h/o uterine and bladder prolapse who is 9 days s/p a uterine and bladder prolapse repair through a vaginal incision as well as a colpecleisis who was noted to have an extraperitoneal bladder perforation on CT cystogram yesterday evening. The conrad catheter has remained in place overnight and her abdominal pain/discomfort has significantly decreased. Her WBC has decreased to 8.5 and her sCr has decreased to her baseline of 0.65. Discussed that her conrad catheter will remain in place for at least 2-3 weeks and she will be brought back for a CT cystogram. As long as the imaging shows no evidence of continued bladder leakage, will remove conrad catheter. Time-Based Coding :: [TOTAL MINUTES] spent with patient and on the chart (including review of chart, obtaining history, exam, reviewing outside data, placing orders, documenting exam and treatment plan, and counseling patient) on [DATE]. Quality VTE Deep Vein Thrombosis/Pulmonary Embolism Present on Admission: No IH PROFEE Charge codes Subsequent inpatient/observation care: [id number]
--- NOTE | 2024-05-14 13:49 | CM.DANOTE ---
Brief DCP Assessment Note Pt is a 74yo f here following perforated bladder. Pt is two weeks post op from bladder surgery in [place]. PCP Madelyn Spence Payer Medicare and [facility] [employer] reviewed EMR. Per hospitalist in morning rounds, pt likely to dc home today. Per RN, likely no CM needs but will need a medical priority boarding pass. Plan is to dc home with catheter for two weeks and f/u in OP setting. [employer] met with pt briefly in room. Confirms living on [address] and sister is plan to transport home. [employer] completed medical ferry boarding pass and gave to pt. pt appreciative. Deny other CM needs P: pt discharged home with sister support/to transport. Catheter for two weeks and f/u in OP setting. CM team will continue to follow as needed KAYCEE Root Discharge Planning/Care Management CM Discharge Assessment Start: 05/14/24 13:48 Freq: Status: Active Protocol: Document 05/14/24 13:48 (Rec: 05/14/24 13:49 [id number]) Discharge Planning Assessment Assigned Manager Mobile KAYCEE Leung DPOA/Assigned Designee Name sister Lange Contact Information [phone] Advance Directives? No History Provided By Patient,Medical Record Prior Living Arrangements House Household Members children Type of transporation used prior to Drives own vehicle admit Independent with ADL's Yes Is patient alert and oriented? Yes Caregiver for Another Yes Discharge Plan Home Referrals Initiated None needed Review Status In Process Please Provide Date Initial DC 05/14/24 Assessment Was Performed Next Review Type Continued Stay Review
--- NOTE | 2024-05-15 22:57 | PM.DS.1 ---
History of Present Illness History of Present Illness Date Patient Seen: 05/14/24 Time Patient Seen: 11:00 Chief complaint: infection, post op problems, sent by pcp Narrative: 74 y/o with recent urologic procedure, presented to ED with dysuria, MANN, Rt hydronephrosis. Seen by urology in the ED: 74 y/o F w/ h/o uterine and bladder prolapse who is 8 days s/p a uterine and bladder prolapse repair through a vaginal incision as well as a colpecleisis. Her procedure was performed by her Urogynecologist down in [place], [place]. At the conclusion of the procedure, they performed a cystoscopy and noted a few small papillary lesions on her right lateral bladder wall. The on-call Urologist then performed a bladder biopsy of the aforementioned area. She had a conrad catheter placed and was admitted to the hospital for one night. The following morning her catheter was removed and she was able to urinate without difficulty. She does live on [facility] and returned there on the 06 of May. Over the last few days, she noted she had abdominal distension/discomfort as well as difficulty urinating. She would attempt to urinate and only a few drops would come out. She continued to feel like she had a full bladder and was unable to completely empty her bladder. She was in contact with her Urogynecologist over the last few days, and she was finally able to convince her to present to her local physical for evaluation who recommended she present to ED for further evaluation/treatment. Her evaluation was notable for a WBC of 13.7, Hgb 12.5, sCr of 1.78 w/ a BUN of 41 (baseline sCr and BUN were 0.7 and ~20, respectively). A conrad catheter was placed with relative ease and immediate drainage of clear yellow urine. She had a NCCT Abd/Pel performed that noted a moderate amount of free fluid in the pelvis and severe right hydroureteronephrosis (of note, the hydronephrosis was a chronic finding from a RBUS that was performed in February of 2024). Urology was consulted regarding her continued pain/discomfort and elevated sCr. Apart from mild leukocytosis, w/o signs of UTI hence not started abx. Placed in observation. Discharge Providers Provider Date of admission: 05/13/24 20:13 Discharge Date: 05/14/24 Primary care physician: Madelyn Spence MD Discharge provider: Juan Payne DO Summary Hospital Course Discharge Diagnosis: (1) Bladder rupture: Status: Acute (2) MANN (acute kidney injury): Status: Acute (3) Hydronephrosis, right: Status: Acute Hospital Course: 74 y/o F w/ h/o uterine and bladder prolapse who was 9 days s/p a uterine and bladder prolapse repair through a vaginal incision as well as a colpecleisis who was noted to have an extraperitoneal bladder perforation on CT cystogram. CT showed uroma and R hydronephrosis as well as MANN. The conrad catheter remained in place overnight and her abdominal pain/discomfort had significantly decreased. WBC improved as did her creatinine to baseline. Urology was okay with patient discharging home with plan for outpatient follow up and continued conrad for 2-3 weeks. UA was not indicative of infection. No medications were prescribed. Time Spent with Patient Time spent: Less than 30 minutes Exam Vital Signs (past 8 hours): Oxygen Delivery Method Room Air Oxygen Flow Rate 0 Narrative Exam Narrative: Gen: no acute distress, conrad in place Ext: no edema Pulm: No respiratory distress Objective Labs 05/14/24 04:02 05/14/24 04:02 [facility] Medical History Uterine prolapse Social History household members: children Smoking Status: Former smoker alcohol intake: former additional social history: exercise: 5,000 steps per day. 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 FHX: no colon cancer half sister with breast cancer 08/2023 Discharge Plan Discharge Plan Patient Disposition: Home Provider Discharge Comment: You were admitted to the hospital for elevated creatinine related to bladder injury. Please follow up with urologyanamaria to stay in. Urology office will contact you for a follow up appointment. Discharge orders & Medications Prescriptions: No Action No Known Home Medications Follow up/Referrals: Madelyn Spence MD [Primary Care Provider] - Visit Report/Discharge Packet Stand Alone Forms: Patient Portal/API, Stroke Signs & Symptoms Discharge Data Primary Care Provider: Madelyn Spence Attending Provider: Kishore Sellers Admit Date/Time: 05/13/24 20:13 Quality VTE Deep Vein Thrombosis/Pulmonary Embolism Present on Admission: No
== END 2024-05-14 12:30 | disposition home or self-care (01) ==
LOC: ED 20:12 → AC 20:14
PROVIDERS: Emergency Medicine; Admitting Provider Internal Medicine; Emergency Provider Emergency Medicine; PCP Family Medicine; Visit Provider Internal Medicine
DX: N99.71 Accidental puncture and laceration of a genitourinary system organ or structure during a genitourinary system procedure (principal); R33.8 Other retention of urine; N17.8 Other acute kidney failure; N13.39 Other hydronephrosis; R30.0 Dysuria
CPT/HCPCS: 36415; 51798; 72194; 74176; 80048; 80053; 81001; 83605; 85025; 87040; 87077; 87086; 87186; 96361; 96365; 96375; 99233; 99284; G0378; J0696; J1170; J2405; Q9967

== ENCOUNTER → 2024-06-04 10:03 | Outpatient (CLI) | payer MEDICARE, OTHER, SELFPAY ==
[2024-05-13 21:16] VITALS: BMI 31.1
--- NOTE | 2024-06-04 10:05 | DI.CT.S_ITS ---
PROCEDURE: CT CYSTOGRAM INDICATIONS: Perforation of bladder TECHNIQUE: Both before and after gravity instillation of 10% Isovue contrast solution into the bladder through a Lewis catheter, 5 mm axial images acquired from the bladder dome to the symphysis. 5 mm thick coronal and sagittal reformats were acquired. For radiation dose reduction, the following was used: automated exposure control, adjustment of mA and/or kV according to patient size. COMPARISON: [facility], CT, CT CYSTOGRAM, 05/13/2024, 18:35. FINDINGS: Image quality: Diagnostic. Bladder: Previously seen right bladder perforation is no longer visualized and there is no extravasation of intracystic contrast material. Small bilateral bladder diverticula are seen that do not appear significantly changed. There bladder wall appears mildly thickened and trabeculated. Mild residual pericystic fat stranding is seen. A Lewis catheter is seen in appropriate position. Distal Ureters: No abnormal distension. No reflux of contrast material. PELVIS: Peritoneum and Bowel: Bowel loops demonstrate normal wall thickness and caliber. No free fluid or air. Multiple diverticula are seen in the colon without signs acute diverticulitis. Pelvic Organs: No pelvic mass. Pelvic Nodes: No enlarged lymph nodes. Miscellaneous: No inguinal hernias are seen. Bones: No aggressive osseous abnormality. Mild grade 1 anterolisthesis of L4 on L5. Degenerative disc disease and facet hypertrophy are seen in the included spine. IMPRESSION: 1. No recurrent bladder perforation or extravasation of intracystic contrast material. 2. Mild pericystic fat stranding may be related to residual edema from the prior perforation, interval postsurgical changes, or cystitis. Approved by: Kirill Resendiz M.D. on 06/04/2024 at 13:25
== END ==
PROVIDERS: PCP Family Medicine; Referring Provider Urology; Visit Provider Urology
DX: N32.89 Other specified disorders of bladder (principal); N32.3 Diverticulum of bladder; M43.16 Spondylolisthesis, lumbar region
CPT/HCPCS: 72194; Q9967

== ENCOUNTER → 2024-07-22 11:13 | Outpatient (CLI) | payer MEDICARE, OTHER, SELFPAY ==
[2024-05-13 21:16] VITALS: BMI 31.1
[2024-07-22 20:33] LABS: Hematocrit 41.8 % (36-46); Mean Corpuscular HGB Conc 33.5 % (30-36); Mean Corpuscular Hemoglobin 31.8 PG (26-34); Mean Corpuscular Volume 94.7 fL (80-100); Platelet Count 275 X10^3/uL (150-400); Red Blood Cell Count 4.42 X10^6/uL (4.0-5.2); Red Cell Distribution Width 13.4 % (11.6-14.8); White Blood Cell Count 6.2 X10^3/uL (4.5-11.0)
[2024-07-22 20:48] LABS: Alanine Aminotransferase 16 IU/L (<35); Albumin 4.3 g/dL (3.5-5.0); Albumin Globulin Ratio 1.5 (1.0-2.8); Alkaline Phosphatase 56 U/L (38-126); Aspartate Aminotransferase 23 IU/L (14-36); BUN Creatinine Ratio 23.3 (6-22); Bilirubin Total 0.5 mg/dL (0.2-1.3); Blood Urea Nitrogen 14 mg/dL (7-17); Calcium 9.8 mg/dL (8.4-10.2); Carbon Dioxide 26 mmol/L (22-32); Chloride 103 mmol/L (98-107); Estimated Glomerular Filt Rate > 60 mL/min (>60); Globulin 2.9 g/dL (1.7-4.1); Glucose 105 mg/dL (80-110); HEMOLYSIS < 15 (0-50); Potassium 4.3 mmol/L (3.4-5.1); Sodium 136 mmol/L (137-145); Total Protein 7.2 g/dL (6.3-8.2)
== END ==
PROVIDERS: PCP Family Medicine; Visit Provider Physician Assistant Medical
DX: K92.1 Melena (principal); R19.7 Diarrhea, unspecified
CPT/HCPCS: 80053; 85027

== ENCOUNTER → 2024-07-23 07:00 | Outpatient (CLI) | payer MEDICARE, OTHER, SELFPAY ==
[2024-05-13 21:16] VITALS: BMI 31.1
[2024-07-23 23:10] LABS: Adenovirus F 40/41 Not Detected (Not Detect); Astrovirus Not Detected (Not Detect); Campylobacter Not Detected (Not Detect); Clostridium difficile toxin AB Not Detected (Not Detect); Cryptosporidium Not Detected (Not Detect); Cyclospora cayetanensis Not Detected (Not Detect); Entamoeba histolytica Not Detected (Not Detect); Enteroaggregative E.coli Not Detected (Not Detect); Enteropathogenic E.coli Not Detected (Not Detect); Enterotoxigenic E.coli It/st Not Detected (Not Detect); Giardia lamblia Not Detected (Not Detect); Norovirus GI/GII Not Detected (Not Detect); Plesiomonsa shigelloides Not Detected (Not Detect); Rotavirus A Not Detected (Not Detect); Salmonella Not Detected (Not Detect); Sapovirus Not Detected (Not Detect); Shiga-like toxin-prod E.coli Not Detected (Not Detect); Shigella/Enteroinvasive E.coli Not Detected (Not Detect); Vibrio Not Detected (Not Detect); Vibrio cholerae Not Detected (Not Detect); Yersinia enterocolitica Not Detected (Not Detect)
== END ==
PROVIDERS: PCP Family Medicine; Visit Provider Physician Assistant Medical
DX: K92.1 Melena (principal); R19.7 Diarrhea, unspecified
CPT/HCPCS: 87507

== ENCOUNTER → 2024-08-20 09:45 | Outpatient (CLI) | payer MEDICARE, OTHER, SELFPAY ==
[2024-05-13 21:16] VITALS: BMI 31.1
--- NOTE | 2024-08-20 09:47 | DI.MG.S_ITS ---
UNILATERAL RIGHT DIGITAL DIAGNOSTIC MAMMOGRAM 3D/2D: 08/20/2024 CLINICAL: Patient returns for a 6 month follow up of the right breast. Comparison is made to exams dated: 03/04/2024 mammogram and 01/02/2024 mammogram - [facility]. There are scattered areas of fibroglandular density (category b / 25%-50% glandular tissue). There is a focal asymmetry in the right breast at 12 o'clock middle depth, which is not significantly changed since baseline mammogram 01/02/2024. No prior ultrasound correlate identified. No other significant masses, calcifications, or other findings are seen in the breast. IMPRESSION: INCOMPLETE: NEED ADDITIONAL IMAGING EVALUATION Right breast focal asymmetry at 12 o'clock middle depth, stable since baseline mammogram in December 2023. An ultrasound is recommended for further evaluation and is scheduled to immediately follow this examination. Based on the Tyrer Cuzick model (a risk assessment model) the patient's lifetime risk is 6.6% and her 10 year risk is 5.4%. According to the ACR, ACS, and NCCN guidelines, an annual breast MRI exam along with mammogram is recommended if the patient's lifetime risk is 20% or greater. This exam was interpreted at Station ID: [id number]. NOTE: For mammograms, a report in lay terms will be sent to the patient. Approximately 15% of breast malignancies will not be visualized mammographically. In the management of a palpable breast mass, a negative mammogram must not discourage biopsy of a clinically suspicious lesion. Electronically Signed By: Suzanne Rose M.D., Ph.D. eb/:08/20/2024 11:04:38 letter sent: Additional Imaging Needed ACR BI-RADS Category 0: Incomplete: Need Additional Imaging Evaluation
--- NOTE | 2024-08-20 09:47 | DI.US.S_ITS ---
LIMITED ULTRASOUND OF RIGHT BREAST: 08/20/2024 CLINICAL: 6 month follow-up of probably benign BR3 mammographic finding in the right breast. Comparison is made to exams dated: 08/20/2024 mammogram, 03/04/2024 ultrasound, 03/04/2024 mammogram, and 01/02/2024 mammogram - [facility]. Real-time ultrasound of the right breast 10-11 o'clock region was performed. Grigsby scale images of the real-time examination were reviewed. No sonographic correlate identified for the mammographic focal asymmetry. Incidental benign oil cyst is seen at 11 o'clock, 4 cm from the nipple. IMPRESSION: PROBABLY BENIGN Right breast focal asymmetry at 12 o'clock middle depth without ultrasound correlate and initially seen on baseline mammogram in December 2023. Finding is probably benign. Recommend follow-up mammogram and ultrasound in 6 months to demonstrate 1 year stability. Patient will be due for bilateral mammogram at that time. Findings and recommendations were conveyed to the patient during today's evaluation. This exam was interpreted at Station ID: [id number]. Electronically Signed By: Suzanne Rose M.D., Ph.D. eb/:08/20/2024 11:08:14 letter sent: Followup Recommended ACR BI-RADS Category 3: Probably Benign
--- NOTE | 2024-08-20 09:47 | DI.RAD.S_ITS ---
PROCEDURE: XR DEXA AXIAL SKELETON INDICATIONS: 6 month follow up COMPARISON: None. FINDINGS: Lumbar Spine: Bone mineral density 0.850 g/cm2, T score -1.8, osteopenia. Left Hip: Bone mineral density 0.602 g/cm2, T score -2.2, osteopenia. Left Femoral Neck: Bone mineral density 0.7 x 0 g/cm2, T score -1.6, osteopenia. Fracture Risk Calculation (when applicable): 10-year fracture risk of a major osteoporotic fracture 13 percent and of a hip fracture 3.3 percent. (T score greater or equal to -1.0 to: NORMAL) (T score from -1.1 to -2.4: OSTEOPENIA) (T score less than or equal to -2.5: OSTEOPOROSIS) IMPRESSION: Osteopenia. Follow-up guidelines as follows: Osteoporosis: Consider a repeat DEXA and Vertebral Fracture Assessment (VFA) exam in 2 years or sooner if medically necessary, to reassess this patient's status. Osteopenia: Consider a repeat DEXA in 2-3 years to reassess this patient's status, or if there is a new clinical indication. Normal: Consider a repeat DEXA in 5 years or sooner, or if there is a new clinical indication. All treatment decisions require clinical judgment and consideration of individual patient factors, including patient preferences, comorbidities, previous drug use, risk factors not captured in the FRAX model (e.g., frailty, falls, vitamin D deficiency, increased bone turnover, interval significant decline in bone density ) and possible under- or over-estimation of fracture risk by FRAX. In addition, the NOF Guide recommends that FDA-approved medical therapies be considered in postmenopausal women and men age >= 50 years with a: * Hip or vertebral (clinical or morphometric) fracture * T-score of <=-2.5 at the spine or hip * Ten-year fracture probability by FRAX of >= 3% for hip fracture or >=20% for major osteoporotic fracture. People with diagnosed cases of osteoporosis or at high risk for fracture should have regular bone mineral density tests. For patients eligible for Medicare, routine testing is allowed once every 2 years. The testing frequency can be increased to one year for patients who have rapidly progressing disease, those who are receiving or discontinuing medical therapy to restore bone mass, or have additional risk factors. Dictated by: Eliu Whelan M.D. on 08/20/2024 at 13:03 Approved by: Eliu Whelan M.D. on 08/20/2024 at 13:05
== END ==
PROVIDERS: PCP Family Medicine; Referring Provider Family Medicine; Visit Provider Family Medicine
DX: R92.8 Other abnormal and inconclusive findings on diagnostic imaging of breast (principal); N64.89 Other specified disorders of breast; N60.01 Solitary cyst of right breast; M85.89 Other specified disorders of bone density and structure, multiple sites; Z78.0 Asymptomatic menopausal state; N32.89 Other specified disorders of bladder
CPT/HCPCS: 52000; 76642; 77065; 77080; 81002; G0279

== ENCOUNTER → 2025-02-22 12:02 | Outpatient (CLI) | payer MEDICARE, OTHER, SELFPAY ==
[2024-05-13 21:16] VITALS: BMI 31.1
--- NOTE | 2025-02-22 12:03 | DI.MG.S_ITS ---
MM diagnostic mammo BI: 02/22/2025. BI-RADS: 3 CLINICAL: 74-year old female for bilateral diagnostic mammogram that is a follow-up to ultrasound, right on 08/20/2024. Tyrer-Cuzick lifetime risk of 5.2%. Current reported family history of breast cancer: sister. History of ovarian cancer in one first- degree relative. PRIOR EXAMS 08/20/2024, 03/04/2024, 01/02/2024. MAMMOGRAPHY TECHNIQUE: 2D and 3D (tomosynthesis) digital mammographic views obtained, with additional images as needed for full coverage. Current study was also evaluated with a Computer Aided Detection (CAD) system. DENSITY B. There are scattered areas of fibroglandular density. MAMMOGRAPHY FINDINGS Right: Upper at 12:00, Middle depth: There is a focal asymmetry present that is unchanged in size and appearance. No correlate was seen on prior ultrasounds. Bilateral: No suspicious mass, asymmetry, microcalcification, or other abnormality seen. IMPRESSION: Right (Asymmetry): Upper at 12:00, Middle depth * Probably Benign. Left * No evidence of malignancy. RECOMMENDATIONS Right: Upper at 12:00, Middle depth * Six month followup with diagnostic mammography. OVERALL ASSESSMENT CATEGORY BI-RADS-3: Probably Benign. ELECTRONICALLY SIGNED: Kirill Resendiz M.D. on 02/22/2025 at 08:49:31 PM PT Interpreting Station ID: [id number]
== END ==
PROVIDERS: PCP Family Medicine; Referring Provider Family Medicine; Visit Provider Family Medicine
DX: R92.8 Other abnormal and inconclusive findings on diagnostic imaging of breast (principal); Z80.3 Family history of malignant neoplasm of breast; Z80.41 Family history of malignant neoplasm of ovary; N64.89 Other specified disorders of breast; N32.89 Other specified disorders of bladder; R39.9 Unspecified symptoms and signs involving the genitourinary system
CPT/HCPCS: 52000; 77066; 81002; G0279

== ENCOUNTER → 2025-08-25 11:43 | Outpatient (CLI) | payer MEDICARE, OTHER, SELFPAY ==
[2024-05-13 21:16] VITALS: BMI 31.1
[2025-08-25 10:21] VITALS: BMI 31.1
--- NOTE | 2025-08-25 11:45 | DI.MG.S_ITS ---
MM diagnostic mammo unilat RT: 08/25/2025. BI-RADS: 3 CLINICAL: 75-year old female for right diagnostic mammogram that is a follow-up to diagnostic mammogram on 02/22/2025. Tyrer-Cuzick lifetime risk of 4.9%. Current reported family history of breast cancer: sister. History of ovarian cancer in one first- degree relative. PRIOR EXAMS 02/22/2025, 08/20/2024, 03/04/2024, 01/02/2024. MAMMOGRAPHY TECHNIQUE: 2D and 3D (tomosynthesis) digital mammographic views obtained, with additional images as needed for full coverage. Current study was also evaluated with a Computer Aided Detection (CAD) system. DENSITY Right: B. There are scattered areas of fibroglandular density. MAMMOGRAPHY FINDINGS Right: Upper at 12:00, Middle depth: Correlating with prior imaging concern, there is a stable focal asymmetry present. No sonographic correlate was seen on prior ultrasound. IMPRESSION: Right (Asymmetry): Upper at 12:00, Middle depth * Probably Benign. RECOMMENDATIONS Right: Upper at 12:00, Middle depth * Six month followup with diagnostic mammography to demonstrate 2 year stability. When the patient returns for short-term unilateral followup, a mammogram for the contralateral breast will also be due. COMMENTS: Findings and recommendations were conveyed to the patient during today's evaluation. OVERALL ASSESSMENT CATEGORY BI-RADS-3: Probably Benign. ELECTRONICALLY SIGNED: Betty Chappell M.D. on 08/25/2025 at 12:46:49 PM PT Interpreting Station ID: [id number]
== END ==
PROVIDERS: PCP Family Medicine; Referring Provider Family Medicine; Visit Provider Family Medicine
DX: R92.8 Other abnormal and inconclusive findings on diagnostic imaging of breast (principal); N64.89 Other specified disorders of breast; R92.321 Mammographic fibroglandular density, right breast; Z80.3 Family history of malignant neoplasm of breast; Z80.41 Family history of malignant neoplasm of ovary
CPT/HCPCS: 77065; G0279